=== PATIENT | male | born 1965 | race Caucasian/White ===

== ENCOUNTER → 2017-10-24 | Outpatient (CLI) | payer BC ==
--- NOTE | 2017-10-24 11:33 | FL ---
Sleeve gastrectomy esophogram. EXAMINATION TYPE: FL UGI air w esophagus DATE OF EXAM: 10/24/2017 11:20 AM CLINICAL HISTORY: Postop evaluation COMPARISON: NONE 46 sec fluoro 9 images. Sleeve gastrectomy esophagram and upper GI was performed following the ingestion of barium. Esophageal peristalsis and motility are within normal limits. Noted are changes of sleeve gastrecto my. I do not see evidence for leak or obstruction at this point in time. Small hiatal hernia noted. IMPRESSION: Changes of sleeve gastrectomy without evidence for obstruction or leak at this point in time. Small hiatal hernia noted.
== END ==
LOC: RADFLMAIN 10:32
PROVIDERS: ATTEND Internal Medicine
DX: K44.9 Diaphragmatic hernia without obstruction or gangrene (principal); Z98.84 Bariatric surgery status
CPT/HCPCS: 74246; 93225; 93226